=== PATIENT | female | born 1985 | race Caucasian/White ===

== ENCOUNTER → 2017-05-20 17:17 | Outpatient (REF) | payer BC, SELFPAY | LOC: LAB 17:17 | PROVIDERS: Visit Provider Nurse Practitioner Obstetrics & Gynecology | DX: Z34.90 Encounter for supervision of normal pregnancy, unspecified, unspecified trimester (principal) | CPT/HCPCS: 86403 ==

== ENCOUNTER 2017-06-25 08:10 | Inpatient (IN) ==
[2017-06-25 08:56] LABS: Appearance,Urine CLEAR (Clear); Bilirubin,Urine Negative (Negative); Blood, Urine Negative (Negative); Color,Urine YELLOW (Yellow); Glucose,Urine (UA) Negative (Negative); Ketones,Urine Negative (Negative); Leukocyte Esterase,Urine Negative (Negative); Microscopic, Urine URINE MICROSCOPIC (MICROSCOPIC); Protein,Urine TRACE (Negative); Specific Gravity, Urine 1.015 (1.005-1.030); Urobilinogen,Urine 0.2 EU/dl (0.2)
[2017-06-25 09:12] LABS: Basophils % 0.1 % (0.1-2.0); Eosinophils # 0.1 K/mm3 (0.0-0.4); Hematocrit 40.1 % (37.0-47.0); Hemoglobin 13.1 g/dL (12.2-16.2); Lymphocytes # 1.1 K/mm3 (0.7-4.5); Lymphocytes % 15.5 K/mm3 (10-50); Mean Corpuscular HGB Conc 32.7 g/dL (31.8-35.4); Mean Corpuscular Volume 97.8 fl (81-99); Mean Platelet Volume 8.9 fl (7.4-10.4); Monocytes # 0.3 K/mm3 (0.1-1.0); Monocytes % 4.2 % (1.7-9.3); Neutrophils # 5.6 K/mm3 (1.8-7.8); Neutrophils % 79.2 % (37.0-80.0); Platelet Count 221 K/mm3 (142-424); Red Blood Count 4.11 M/mm3 (4.20-5.40); Red Cell Distribution Width 13.6 % (11.5-17.5); White Blood Count 7.1 K/mm3 (4.8-10.8)
[2017-06-25 09:18] LABS: WBC,Urine Occasional #/hpf (0-3)
[2017-06-25 09:19] LABS: Bacteria,Urine 1+ /lpf; Mucus,Urine 1+ /lpf
--- NOTE | 2017-06-25 10:37 | Procedure Note ---
- Delivery Note Delivery Date:: 06/25/17 Delivery Time:: 10:27 Anesthesia Type: None Was labor medically induced?: No Induction method: none Infant delivered prior to 39 weeks?: No Justification for early elective delivery:: Active Labor Gender: Female at 1 minute: 8 at 5 minutes: 9 AF:: Clear fluid Delivery Procedure:: She is a 31-year-old 3 now para 3 who is 40 and 1 weeks gestational age. She came in in active labor and was found to be 6-7 cm dilated. She rapidly progressed to full dilation and delivered spontaneously a liveborn female child at 10:27 AM on the morning of June 25, 2017. On deliver the head there was a loose nuchal cord which was easily reduced. This is followed by the rest of the infant's body atraumatically. The nasopharynx and oropharynx were bulb suctioned. The baby cried spontaneously. We allowed the cord to continue to pulsate for 1 minute. We then doubly clamped the cord and cut the cord. The baby was then placed on the mother's abdomen for further care. The nurses assigned Apgars of 8 at 1 minute and 9 at 5 minutes. We then obtained cord blood as well as cord pH. Patient received IV oxytocin using gentle traction on the cord and countertraction on the fundus I was able to easily deliver the placenta intact. Had a normal three-vessel cord. There were no perineal or vaginal lacerations. She plans to breast-feed. Her estimated blood loss was approximately 400 cc. Placental Delivery Description: Spontaneous
--- NOTE | 2017-06-25 10:39 | History & Physical Report ---
OB - H&P: HPI Antepartum - History of Present Illness Chief complaint: Contractions - History of Present Criteria for establishing EDC:: LMP confirmed by 1st trimester US care: good care Ultrasounds: normal 1st trimester US, normal mid trimester US Obstetrical complications: none Medical complications: none Planning to breastfeed?: Yes [facility] History I have reviewed the patient's past medical history: Yes Medical History: Denies:: Anxiety, Asthma, Diabetes Mellitus Type 2 Laterality Cases: Bilateral: Myringotomy (Ear Tubes), Other Other Surgeries: Yes: Other. No: Amputation: No Fractures: No - *Social History Smoking Status: Never smoker Alcohol Intake: never Substance Use Type: denies use - Psychiatric History Pschychiatric History:: Denies:: Anxiety *Family Hx:: Diabetes, Hypertension Para: 2 Review of Systems - Review of Systems Review of systems:: pertinent systems reviewed and negative unless documented below Meds Home Medications Medication Instructions Recorded Confirmed Type ferrous sulfate 325 mg (65 mg 325 mg PO DAILY tab 03/24/17 06/25/17 History iron) tablet 1 tab PO QDAY 03/24/17 06/25/17 History vitamin,calcium,zssvprcs-weug-zbmlr acid tablet Allergies Allergy/AdvReac Type Severity Reaction Status Date / Time No Known Drug Intolerances Allergy Unknown NA Verified 06/25/17 08:21 OB - H&P: Exam - Physical Exam Vital signs: Temp Pulse Resp BP Pulse Ox 98.4 F 74 18 121/84 99 06/25/17 08:20 06/25/17 08:20 06/25/17 08:20 06/25/17 08:20 06/25/17 08:20 - Constitutional no acute distress OB - Results - Labs Labs: Short CBC 06/25/17 Range/Units 08:50 WBC 7.1 (4.8-10.8) K/mm3 Hgb 13.1 (12.2-16.2) g/dL Hct 40.1 (37.0-47.0) % Plt Count 221 (142-424) K/mm3 Urine 06/25/17 Range/Units 08:20 Urine Color Yellow (Yellow) Urine Appearance Clear (Clear) Urine pH 7.0 (5.0-8.5) Ur Specific [place] 1.015 (1.005-1.030) Urine Protein Trace (Negative) Urine Glucose (UA) Negative (Negative) OB - A/P Antepartum (1) Normal delivery Current visit: Yes Status: Acute - Additional Plan Plan: expectant management Planning to breastfeed?: Yes
[2017-06-26 07:34] LABS: Hematocrit 34.6 % (37.0-47.0); Hemoglobin 11.3 g/dL (12.2-16.2)
--- NOTE | 2017-06-26 09:04 | Progress Note ---
Internal Medicine - PN: Subj *Date: 06/26/17 *Time: 09:03 Interval history: She continues to do very well. She is eating and drinking and ablating. She is feeding. Her lochia is normal. Exam Vital signs and Labs for Last 24 Hours: Temp Pulse Resp BP Pulse Ox 98.4 F 78 20 107/62 97 06/26/17 03:21 06/26/17 03:21 06/26/17 03:21 06/26/17 03:21 06/26/17 03:21 Laboratory Results - last 24 hr 06/25/17 08:20: Urine Color Yellow, Urine Appearance Clear, Urine pH 7.0, Ur Specific [place] 1.015, Urine Protein Trace, Urine Glucose (UA) Negative, Urine Ketones Negative, Urine Blood Negative, Urine Nitrate Negative, Urine Bilirubin Negative, Urine Urobilinogen 0.2, Ur Leukocyte Esterase Negative, Urine RBC None , Urine WBC Occasional, Ur Squamous Epith Cells 5-10, Urine Bacteria 1+, Urine Mucus 1+ 06/25/17 08:50: Blood Type A Positive, Antibody Screen Negative 06/25/17 08:50: WBC 7.1, RBC 4.11 L, Hgb 13.1, Hct 40.1, MCV 97.8, MCH 32.0 H, MCHC 32.7, RDW 13.6, Plt Count 221, MPV 8.9, Neut % (Auto) 79.2, Lymph % (Auto) 15.5, [place] % (Auto) 4.2, Eos % (Auto) 1.0, Baso % (Auto) 0.1, Neut # (Auto) 5.6 , Lymph # (Auto) 1.1, [place] # (Auto) 0.3, Eos # (Auto) 0.1, Baso # (Auto) 0.0 06/25/17 10:46: Cord ABG pH 7.50 H 06/26/17 06:08: Hgb 11.3 L D, Hct 34.6 L I & O for Last 24 hours: Intake & Output 06/23/17 06/24/17 06/25/17 06/26/17 11:59 11:59 11:59 11:59 Weight 151 lb - Constitutional no acute distress Assessment and Plan (1) Normal delivery Current visit: Yes Status: Acute Category: Medical Code(s): O80 - Encounter for full-term uncomplicated delivery; Z37.9 - Outcome of delivery, unspecified - Assessment and plan all Dx Assessment and Plan for all problems:: She continues to do very well. We will plan to send her home tomorrow.
--- NOTE | 2017-06-26 09:07 | Discharge Summary ---
General - General Admission date: 06/25/17 Discharge date: 06/27/17 HPI HPI: She is a 31-year-old 3 now para 3 who was 40 and 1 weeks gestational age. She came in in active labor. He was found to be 6-7 cm dilated. Hospital Course Hospital Course: She subsequently progressed to full dilation and delivered spontaneously a liveborn female child on the morning of June 25, 2017. The baby had Apgars of 8 at 1 minute and 9 at 5 minutes. She weighed 9 lbs. 1 oz. She has done well and has remained afebrile throughout her hospitalization. She is eating and drinking and ambulate in. She is breast- feeding. She was group B streptococcus positive and did receive 1 dose of IV antibiotics prior to her delivery. She will be discharged home to follow-up with me in 2 weeks time. Objective Vital signs: Temp Pulse Resp BP Pulse Ox 98.4 F 78 20 107/62 97 06/26/17 03:21 06/26/17 03:21 06/26/17 03:21 06/26/17 03:21 06/26/17 03:21 no acute distress Results Labs on day of discharge: Labs from last 24 hours 06/26/17 06/25/17 06/25/17 06:08 10:46 08:50 WBC 7.1 RBC 4.11 L Hgb 11.3 L D 13.1 Hct 34.6 L 40.1 MCV 97.8 MCH 32.0 H MCHC 32.7 RDW 13.6 Plt Count 221 MPV 8.9 Neut % (Auto) 79.2 Lymph % (Auto) 15.5 [place] % (Auto) 4.2 Eos % (Auto) 1.0 Baso % (Auto) 0.1 Neut # (Auto) 5.6 Lymph # (Auto) 1.1 [place] # (Auto) 0.3 Eos # (Auto) 0.1 Baso # (Auto) 0.0 Cord ABG pH 7.50 H Urine Color Urine Appearance Urine pH Ur Specific [place] Urine Protein Urine Glucose (UA) Urine Ketones Urine Blood Urine Nitrate Urine Bilirubin Urine Urobilinogen Ur Leukocyte Esterase Urine RBC Urine WBC Ur Squamous Epith Cells Urine Bacteria Urine Mucus Blood Type Antibody Screen 06/25/17 06/25/17 08:50 08:20 WBC RBC Hgb Hct MCV MCH MCHC RDW Plt Count MPV Neut % (Auto) Lymph % (Auto) [place] % (Auto) Eos % (Auto) Baso % (Auto) Neut # (Auto) Lymph # (Auto) [place] # (Auto) Eos # (Auto) Baso # (Auto) Cord ABG pH Urine Color Yellow Urine Appearance Clear Urine pH 7.0 Ur Specific [place] 1.015 Urine Protein Trace Urine Glucose (UA) Negative Urine Ketones Negative Urine Blood Negative Urine Nitrate Negative Urine Bilirubin Negative Urine Urobilinogen 0.2 Ur Leukocyte Esterase Negative Urine RBC None Urine WBC Occasional Ur Squamous Epith Cells 5-10 Urine Bacteria 1+ Urine Mucus 1+ Blood Type A Positive Antibody Screen Negative DS: Diagnosis - Discharge Diagnosis (1) Normal delivery Status: Acute Discharge Plan - Patient Discharge Instructions ACTIVITY: No heavy lifting DIET: continue same diet - Follow up Plan Disposition: Home, Self-Halfway Medications: Home Medications Medication Instructions Recorded Confirmed Type ferrous sulfate 325 mg (65 mg 325 mg PO DAILY tab 03/24/17 06/25/17 History iron) tablet 1 tab PO QDAY 03/24/17 06/25/17 History vitamin,calcium,acnggqjo-luhs-mqigi acid tablet Prescriptions/Medication Reconciliation: Continue vitamin,calcium,kvaephxx-amqx-tmvcy acid tablet 1 tab PO QDAY ferrous sulfate 325 mg (65 mg iron) tablet 325 mg PO DAILY tab
[2017-06-26 22:29] VITALS: BP 130/80
--- NOTE | 2017-06-27 12:25 | Progress Note ---
Internal Medicine - PN: Subj *Date: 06/27/17 *Time: 10:22 Interval history: no complaints; ready for discharge. PP after of 9# infant. Ambulating, voiding and tolerating regular diet without difficulty lochia less than menses declines pain med Rx at discharge Discharge home with f/u office 6 weeks. Exam Vital signs and Labs for Last 24 Hours: Temp Pulse Resp BP Pulse Ox 99.0 F 68 18 130/80 96 06/26/17 19:55 06/26/17 19:55 06/26/17 19:55 06/26/17 19:55 06/26/17 19:55 I & O for Last 24 hours: Intake & Output 06/25/17 06/26/17 06/27/17 06/28/17 11:59 11:59 11:59 11:59 Weight 151 lb - Constitutional no acute distress - *Routine Respiratory Exam Absent: respiratory distress - *Routine Cardiovascular Exam Absent: tachycardia - *Routine Abdominal Exam Present: soft. Absent: tenderness, distended Comments: fundus firm at umbilicus - *Routine Skin Exam Absent: rash - *Routine Neurological Exam Present: alert, oriented X3 - Routine Psychiatric Exam Present: normal affect. Absent: depressed, anxious Assessment and Plan (1) Normal delivery Current visit: Yes Status: Acute Category: Medical Code(s): O80 - Encounter for full-term uncomplicated delivery; Z37.9 - Outcome of delivery, unspecified - Assessment and plan all Dx Assessment and Plan for all problems:: discharge home f/u office 6 weeks or prn
== END 2017-06-27 12:26 | disposition home or self-care (01) ==
LOC: OBOUT 08:10 → OB 08:13
PROVIDERS: ADMIT Nurse Practitioner Obstetrics & Gynecology; ATTEND Nurse Practitioner Obstetrics & Gynecology

== ENCOUNTER → 2018-07-02 07:14 | Outpatient (CLI) | payer BC, SELFPAY ==
[2018-07-02 07:55] LABS: Basophils % 0.6 % (0.1-2.0); Eosinophils # 0.1 K/mm3 (0.0-0.4); Eosinophils % 2.5 % (0.1-12.0); Hematocrit 40.8 % (37.0-47.0); Hemoglobin 13.5 g/dL (12.2-16.2); Lymphocytes % 52.2 % (10-50); Mean Corpuscular HGB Conc 33.2 g/dL (31.8-35.4); Mean Corpuscular Volume 93.5 fl (81-99); Mean Platelet Volume 7.2 fl (7.4-10.4); Monocytes # 0.2 K/mm3 (0.1-1.0); Monocytes % 4.7 % (1.7-9.3); Neutrophils # 1.5 K/mm3 (1.8-7.8); Platelet Count 295 K/mm3 (142-424); Red Blood Count 4.37 M/mm3 (4.20-5.40); Red Cell Distribution Width 12.4 % (11.5-17.5); White Blood Count 3.8 K/mm3 (4.8-10.8)
[2018-07-02 08:02] LABS: MANUAL DIFFERENTIAL MANUAL DIFFERENTIAL (MANUAL DIFF)
[2018-07-02 08:59] LABS: Alanine Aminotransferase 23 U/L (12-78); Albumin Level 4.3 gm/dL (3.4-5.0); Albumin/Globulin Ratio 1.3 (1.1-1.8); Alkaline Phosphatase 54 U/L (46-116); Aspartate Amino Transferase 12 U/L (15-37); Bilirubin,Total 0.4 mg/dL (0.2-1.0); Blood Urea Nitrogen 18 mg/dL (7-18); Calcium 9.2 mg/dL (8.5-10.1); Carbon Dioxide 29 mmol/L (21.0-32.0); Chloride 103 mmol/L (98-107); Chol/HDL Ratio 2.9 (1-3.5); Cholesterol 204 mg/dL (140-200); Creatinine,Serum 0.81 mg/dL (0.55-1.02); Estimated Glomerular Filt Rate 82 ml/min (>60); Free Thyroxine Index 1.8 ug/dL (5.93-13.13); GFR (African American) 99 ML/MIN (>60); Globulin 3.2 gm/dl (1.3-3.2); Glucose 95 mg/dL (74-106); HDL Cholesterol 70 mg/dL (29-89); LDL Cholesterol 120 mg/dL (0-130); Sodium 141 mmol/L (136-145); T4 (Thyroxine) 5.9 ug/dl (4.7-13.3); Thyroid Stimulating Hormone 6.46 uIU/ml (0.358-3.740); Total Protein,Serum 7.5 gm/dL (6.4-8.2); Triglycerides 71 mg/dL (30-200); Triiodothryronine (T3) Uptake 31 % (31-39); VLDL Cholesterol 14 mg/dL (0-40)
[2018-07-02 09:45] LABS: Eosinophils % 4 % (0-3); Lymphocytes % 49 % (10-50); Monocytes % 6 % (2-9); Neutrophils % 41 % (42-76); Platelet Estimate Normal; RBC Morphology Normal; Total Cells Counted 100
== END ==
PROVIDERS: PCP Internal Medicine Adolescent Medicine; Visit Provider Internal Medicine Adolescent Medicine
DX: E78.5 Hyperlipidemia, unspecified (principal); E03.9 Hypothyroidism, unspecified
CPT/HCPCS: 36415; 80053; 80061; 84436; 84443; 84479; 85007; 85025

== ENCOUNTER → 2019-02-17 10:07 | Outpatient (CLI) | payer BC, SELFPAY ==
--- NOTE | 2019-02-17 10:13 | US_ITS ---
PROCEDURE: US OB TRANSVAGINAL CLINICAL INDICATION: US OB Dates COMPARISON: TVP US TRANSVAGINAL PREG from 11/03/2016 FINDINGS: An intrauterine gestational sac is present with a pole with a crown-rump length of 0.34 cm correlating to gestational age of 6 week. heart tones are present with an FHR of 112 bpm. Yolk sac is noted. Unremarkable adnexa IMPRESSION: Live IUP at 6 weeks. Estimated due date by Ultrasound is 10/13/2019 Dictated by: Robinson Joseph MD 02/17/2019 17:57 Electronically signed by Robinson Joseph MD in [facility] 02/17/2019 17:57
== END ==
PROVIDERS: PCP Internal Medicine Adolescent Medicine; Visit Provider Nurse Practitioner Obstetrics & Gynecology
DX: O26.841 Uterine size-date discrepancy, first trimester (principal)
CPT/HCPCS: 76817

== ENCOUNTER → 2019-03-03 08:53 | Outpatient (CLI) | payer BC, SELFPAY ==
[2019-03-03 09:22] LABS: Basophils % 0.4 % (0.1-2.0); Eosinophils % 0.7 % (0.1-12.0); Hemoglobin 13.2 g/dL (12.2-16.2); Lymphocytes # 1.5 K/mm3 (0.7-4.5); Lymphocytes % 28.7 % (10-50); Mean Corpuscular HGB Conc 32.3 g/dL (31.8-35.4); Mean Corpuscular Hemoglobin 31.2 pg (27.0-31.2); Mean Corpuscular Volume 96.5 fl (81-99); Mean Platelet Volume 7.6 fl (7.4-10.4); Monocytes # 0.3 K/mm3 (0.1-1.0); Monocytes % 4.6 % (1.7-9.3); Neutrophils # 3.5 K/mm3 (1.8-7.8); Neutrophils % 65.6 % (37.0-80.0); Platelet Count 316 K/mm3 (142-424); Red Blood Count 4.25 M/mm3 (4.20-5.40); Red Cell Distribution Width 13.2 % (11.5-17.5); White Blood Count 5.3 K/mm3 (4.8-10.8)
[2019-03-04 08:48] LABS: HIV Screen 4th Generation wRfx Non Reactive (Non Reactive)
[2019-03-04 16:30] LABS: Hepatitis B Surface Antigen Negative (Negative); Hepatitis C Antibody <0.1 s/co ratio (0.0-0.9); Rapid Plasma Reagin Ab Titer Non Reactive (NonRea<1:1); Rubella Antibodies, IgG 1.88 index (Immune >0.99)
== END ==
PROVIDERS: Visit Provider Nurse Practitioner Obstetrics & Gynecology
DX: Z34.90 Encounter for supervision of normal pregnancy, unspecified, unspecified trimester (principal)
CPT/HCPCS: 36415; 85025; 86592; 86703; 86762; 86850; 87340; 87380; G0432

== ENCOUNTER → 2019-03-25 12:01 | Outpatient (CLI) | payer BC, SELFPAY ==
--- NOTE | 2019-03-25 12:07 | US_ITS ---
PROCEDURE: US OB TRANSVAGINAL CLINICAL INDICATION: US OB T/V- Bleeding cramping in early COMPARISON: US OB TRANSVAGINAL from 02/17/2019 FINDINGS: An intrauterine gestational sac is present with a pole with a crown-rump length of 4.73cm correlating to gestational age of 11weeks 4days. heart tones are present with an FHR of 174bpm. Yolk sac is noted. There is an area of increased echogenicity along the placenta adjacent to the endometrium suspicious for an area of subchorionic bleeding. There is some increased echogenicity in the cervical canal which may be related to blood as well. Unremarkable adnexa IMPRESSION: Live IUP at 11 weeks 4 days. There is a small area of suspected subchorionic hemorrhage Estimated due date by Ultrasound is 10/10/2019 Dictated by: Robinson Joseph MD 03/25/2019 14:05 Electronically signed by Robinson Joseph MD in [facility] 03/25/2019 14:05
== END ==
PROVIDERS: PCP Internal Medicine Adolescent Medicine; Visit Provider Nurse Practitioner Obstetrics & Gynecology
DX: O46.90 Antepartum hemorrhage, unspecified, unspecified trimester (principal); O99.89 Other specified diseases and conditions complicating pregnancy, childbirth and the puerperium; R25.2 Cramp and spasm
CPT/HCPCS: 76817

== ENCOUNTER → 2019-05-23 12:56 | Outpatient (CLI) | payer BC, SELFPAY ==
--- NOTE | 2019-05-23 12:56 | US_ITS ---
PROCEDURE: US OB /MATERNAL DETAIL CLINICAL INDICATION: 20 wk gestation COMPARISON: No exams were available for comparison FINDINGS: There is a single live fetus which is in variable position which ended up in breech position at the into the exam. Send is posterior. Cervix is closed measuring 3.9 cm. Patient has a history of subchorionic hemorrhage. There is a hypoechoic curvilinear area along the lower uterine region measuring 4 x 1.3 cm and could represent sequela from the sore a chorionic hemorrhage. This however is questionable. The placenta is posterior in implantation and the area of decreased echogenicity is inferior.. Complete survey performed and was unremarkable on the submitted images as in PACS. No discrete anomalies identified on survey imaging by technologist. Active fetus. Three-vessel cord with satisfactory umbilical cord insertion. 4- chamber heart noted. Survey of brain & ventricles Unremarkable. Face and neck survey unremarkable. Diaphragm and chest views unremarkable. Abdomen: Both kidneys noted and unremarkable. Stomach noted and satisfactory. Spine: Survey of the spine satisfactory with no anomalies identified nor imaged. Both arms and legs noted. Amniotic Fluid: Adequate. Maternal adnexa: No significant findings. Measurements: Average ultrasound age 20weeks 1day. Gestational Age 19 weeks 4 days Estimated due date by ultrasound age 0710/09/2019. Estimated weight 331g BPD = 20weeks 1day OFD = 20 weeks 3 days HC = 19weeks 4days AC = 20weeks 2days FL = 20weeks 1day Growth Percentile= 75% Heart Rate = 153bpm Cerebellum = 20weeks 2days Humerus = 20weeks 3days HC/AC is 1.13 CI is 0.77 FL/BPD is 0.7 FL/AC is 0.22 IMPRESSION: There is a live IUP in variable position with an average ultrasound age of 20 weeks and 1 day. No obvious anomalies are evident with all parameters correlating. Please see above for detail. There is some heterogeneous echogenicity along the lower uterine segment which could be residual from the previously noted subchorionic hemorrhage. The placenta is posterior in implantation without obvious previa. Continued follow-up is suggested. Dictated by: Robinson Joseph MD 05/23/2019 14:21 Electronically signed by Robinson Joseph MD in [facility] 05/23/2019 14:21
== END ==
PROVIDERS: PCP Internal Medicine Adolescent Medicine; Visit Provider Nurse Practitioner Obstetrics & Gynecology
DX: Z34.90 Encounter for supervision of normal pregnancy, unspecified, unspecified trimester (principal); Z36.0 Encounter for antenatal screening for chromosomal anomalies
CPT/HCPCS: 76811

== ENCOUNTER → 2019-07-08 06:49 | Outpatient (CLI) | payer BC, SELFPAY ==
[2019-07-08 07:49] LABS: Glucose,Fasting 88 mg/dl (74-100)
[2019-07-08 08:57] LABS: Glucose 1 Hour 116 mg/dL (74-100)
== END ==
PROVIDERS: Visit Provider Nurse Practitioner Obstetrics & Gynecology
DX: Z34.90 Encounter for supervision of normal pregnancy, unspecified, unspecified trimester (principal)
CPT/HCPCS: 36415; 82951

== ENCOUNTER → 2019-09-09 09:25 | Outpatient (CLI) | payer BC, SELFPAY ==
--- NOTE | 2019-09-09 09:25 | US_ITS ---
PROCEDURE: US OB /MATERNAL DETAIL CLINICAL INDICATION: Lower abdominal pain COMPARISON: US OB /MATERNAL DETAIL from 05/23/2019 FINDINGS: Single viable intrauterine gestation. Cephalic position. Placenta: Posteriorplacenta grade 1. Cervix: 3.8 centimeters There is average amount fluid. Complete survey performed and was unremarkable on the submitted images as in PACS. No discrete anomalies identified on survey imaging by technologist. Active fetus. Three-vessel cord with satisfactory umbilical cord insertion. 4- chamber heart noted. Survey of brain & ventricles Unremarkable. Face and neck survey unremarkable. Diaphragm and chest views unremarkable. Abdomen: Both kidneys noted and unremarkable. Stomach noted and satisfactory. Spine: Survey of the spine satisfactory with no anomalies identified nor imaged. Both arms and legs noted. Amniotic Fluid: Adequate. Maternal adnexa: No significant findings. Measurements: Average ultrasound age 36weeks 1day. Gestational Age 36weeks 1day Estimated due date by ultrasound age 0710/06/2019. Estimated weight 2,836g BPD = 36weeks 4days OFD = !Error HC = 35weeks 5days AC = 36weeks 1day FL = 36weeks Growth Percentile= 58Percent% Heart Rate = 142bpm HC/AC is 0.98 CI is 0.81 FL/BPD is 0.78 FL/AC is 0.22 IMPRESSION: Thirty-six week 1 day IUP Dictated by: Thierry Salcedo 09/09/2019 11:03 Electronically signed by Thierry Salcedo in [facility] 09/09/2019 11:03
== END ==
PROVIDERS: PCP Internal Medicine Adolescent Medicine; Visit Provider Nurse Practitioner Obstetrics & Gynecology
DX: Z34.90 Encounter for supervision of normal pregnancy, unspecified, unspecified trimester (principal); R10.30 Lower abdominal pain, unspecified
CPT/HCPCS: 76811; 76819

== ENCOUNTER → 2019-09-12 17:41 | Outpatient (CLI) | payer BC, SELFPAY | PROVIDERS: Visit Provider Nurse Practitioner Obstetrics & Gynecology | DX: Z34.90 Encounter for supervision of normal pregnancy, unspecified, unspecified trimester (principal) | CPT/HCPCS: 86403 ==

== ENCOUNTER 2019-09-29 04:42 | Inpatient (IN) | payer BC, SELFPAY ==
[2019-09-29 04:56] VITALS: BMI 25.0
[2019-09-29 05:30] LABS: Microscopic, Urine URINE MICROSCOPIC (MICROSCOPIC)
[2019-09-29 05:36] LABS: Fetal Membrane Rupture (Rapid) Positive (Negative)
[2019-09-29 05:41] LABS: Appearance,Urine CLOUDY (Clear); Basophils % 0.2 % (0.1-2.0); Bilirubin,Urine Negative (Negative); Blood, Urine 2+ (Negative); Color,Urine YELLOW (Yellow); Eosinophils # 0.2 K/mm3 (0.0-0.4); Eosinophils % 2.3 % (0.1-12.0); Glucose,Urine (UA) Negative (Negative); Hematocrit 35.7 % (37.0-47.0); Hemoglobin 12.3 g/dL (12.2-16.2); Ketones,Urine Negative (Negative); Leukocyte Esterase,Urine Negative (Negative); Lymphocytes # 1.4 K/mm3 (0.7-4.5); Lymphocytes % 22.6 % (10-50); Mean Corpuscular HGB Conc 34.3 g/dL (31.8-35.4); Mean Corpuscular Hemoglobin 34.3 pg (27.0-31.2); Mean Corpuscular Volume 99.8 fl (81-99); Mean Platelet Volume 8.1 fl (7.4-10.4); Monocytes # 0.4 K/mm3 (0.1-1.0); Monocytes % 6.4 % (1.7-9.3); Neutrophils # 4.3 K/mm3 (1.8-7.8); Neutrophils % 68.5 % (37.0-80.0); Nitrate,Urine Negative (Negative); Platelet Count 216 K/mm3 (142-424); Protein,Urine 1+ (Negative); Red Blood Count 3.58 M/mm3 (4.20-5.40); Red Cell Distribution Width 13.4 % (11.5-17.5); Specific Gravity, Urine 1.015 (1.005-1.030); Urobilinogen,Urine 0.2 EU/dl (0.2); White Blood Count 6.3 K/mm3 (4.8-10.8)
[2019-09-29 05:53] LABS: Coronavirus 19 IgG Antibody Negative (Negative); Coronavirus 19 IgM Antibody Negative (Negative)
[2019-09-29 05:54] LABS: Amphetamine/Metha Screen,Urine Negative ng/ml (<1000); Barbiturates Screen,Urine Negative ng/ml (<200)
[2019-09-29 05:55] LABS: Benzodiazepines Screen,Urine Negative ng/ml (<200); Cannabinoid Screen,Urine Negative ng/ml (<50)
[2019-09-29 05:56] LABS: Cocaine Screen,Urine Negative ng/ml (<300)
[2019-09-29 05:57] LABS: Methadone Screen,Urine Negative ng/ml (<300)
[2019-09-29 05:58] LABS: Opiate Screen,Urine Negative ng/ml (<300); Phencyclidine Screen,Urine Negative ng/ml (<25)
[2019-09-29 06:01] LABS: Bacteria,Urine 1+ /lpf
--- NOTE | 2019-09-29 06:13 | HMH.OBAPHP ---
OB - H&P: HPI Antepartum - History of Present Illness Chief complaint: Spontaneous rupture of membranes History of present illness: She is a 34-year-old 4 para 3 at 38 weeks gestational age. She came in with spontaneous ruptures of membranes at 330 this morning. - History of Present Criteria for establishing EDC:: LMP confirmed by 1st trimester US care: good care Ultrasounds: normal 1st trimester US, normal mid trimester US Obstetrical complications: none Medical complications: none - Labs GBS status: positive [facility] History I have reviewed the patient's past medical history: Yes Medical History: Denies:: Anxiety, Asthma, Diabetes Mellitus Type 2 *Have you ever received a pneumonia vaccine?: No *Have you received a flu vaccine this season?: No Laterality Cases: Bilateral: Myringotomy (Ear Tubes), Tonsillectomy, Other Other Surgeries: Yes: Other. No: Amputation: No Fractures: No - *Social History Smoking Status: Never smoker Alcohol Intake: never Substance Use Type: denies use *Occupational Status:: employed *Travel in the last 8 weeks: None - Psychiatric History Pschychiatric History:: Denies:: Anxiety Family Hx:: Diabetes, Hypertension Review of Systems - Review of Systems Review of systems:: pertinent systems reviewed and negative unless documented below Meds Home Medications Medication Instructions Recorded Confirmed Type vitamin with calcium tab PO 03/15/19 09/27/19 History no.72-iron 27 mg-folic acid 1 mg tablet ferrous sulfate 325 mg (65 mg 325 mg PO DAILY #30 tab 05/10/19 09/27/19 Rx iron) tablet fluticasone propionate 50 INTRANASAL 05/10/19 09/27/19 History mcg/actuation nasal spray,suspension Allergies Allergy/AdvReac Type Severity Reaction Status Date / Time No Known Drug Intolerances Allergy Unknown NA Verified 09/27/19 10:12 OB - H&P: Exam - Constitutional no acute distress - Routine HEENT Exam Head: Present: normocephalic Eye: Present: EOMI, PERRL ENT: Present: mucous membranes moist - Routine Neck Exam Present: supple, full ROM - Routine Respiratory Exam Absent: accessory muscle use (good air entry bilaterally), respiratory distress, wheezes, crackles - Routine Cardiovascular Exam Present: RRR. Absent: murmur - Routine Abdominal Exam Present: soft, normoactive bowel sounds. Absent: tenderness, distended, guarding - Routine Rectal Exam Patient deferred: visual exam, digital exam - Routine Exam Patient deferred: external exam, groin exam, perineal exam - Routine Extremities Exam Present: full ROM. Absent: cyanosis, edema - Routine Skin Exam Present: intact. Absent: cyanosis - Routine Neurological Exam Present: alert, oriented X3 - Routine Psychiatric Exam Present: normal affect OB - Results - Labs Labs: Short CBC 09/29/19 Range/Units 05:15 WBC 6.3 (4.8-10.8) K/mm3 Hgb 12.3 (12.2-16.2) g/dL Hct 35.7 L (37.0-47.0) % Plt Count 216 (142-424) K/mm3 Urine 09/29/19 Range/Units 05:15 Urine Color Yellow (Yellow) Urine Appearance Cloudy (Clear) Urine pH 7.0 (5.0-8.5) Ur Specific [place] 1.015 (1.005-1.030) Urine Protein 1+ (Negative) Urine Glucose (UA) Negative (Negative) OB - A/P Antepartum (1) Normal delivery at term Current visit: Yes Status: Acute - Additional Plan Planning to breastfeed?: Yes Plan: expectant management Additional Information:: She has spontaneous rupture of membranes. We will plan to deliver her today.
[2019-09-29 06:16] VITALS: BMI 25.0
[2019-09-29 07:15] VITALS: BP 120/75; PULSE 75; RESP 18; TEMP 36.8; O2SAT 98
--- NOTE | 2019-09-29 10:21 | HMH.LABNOT ---
Labor Note - Subjective: Date: 09/29/19 Time: 10:21 regular contraction - Objective: NST:: Reactive Contractions:: every 2-3 minutes Cervical Dilation:: 2-3 Effacement:: 75% Station: -2 Membranes: spontaneously ruptured - Fetus: Monitoring?: Yes monitoring type:: External - Assessment: Labor progressing?: Yes Cephalopelvic disproportion?: No Patient Problems: All Active Problems Normal delivery at term (Acute) (Acute) Strep pharyngitis (Acute) Follow-up arranged for 2 weeks (Acute) - Plan: Anesthesia for epidural?: No Continue to labor down?: Yes Plan for ?: No Continue to monitor?: Yes Start pushing?: No
[2019-09-29 11:30] VITALS: BP 126/76; PULSE 67; RESP 18; TEMP 36.9
--- NOTE | 2019-09-29 12:17 | HMH.LABNOT ---
Labor Note - Subjective: Date: 09/29/19 Time: 12:17 regular contraction - Objective: NST:: Reactive Contractions:: every 2-3 minutes Cervical Dilation:: 4 Effacement:: 75% Station: -2 Membranes: spontaneously ruptured - Fetus: Monitoring?: Yes monitoring type:: External - Assessment: Labor progressing?: Yes Cephalopelvic disproportion?: No Patient Problems: All Active Problems Normal delivery at term (Acute) (Acute) Strep pharyngitis (Acute) Follow-up arranged for 2 weeks (Acute) - Plan: Anesthesia for epidural?: No Continue to labor down?: Yes Plan for ?: No Continue to monitor?: Yes Start pushing?: No
--- NOTE | 2019-09-29 13:41 | HMH.DN ---
- Delivery Note Delivery Date:: 09/29/19 Delivery Time:: 13:21 Anesthesia Type: None Was labor medically induced?: No Induction method: none Gestational age (weeks): 38 delivered prior to 39 weeks?: Yes Justification for early elective delivery:: Active Labor Infant Gender: Male at 1 minute: 8 at 5 minutes: 9 Delivery Procedure:: She is a 34-year-old 4 para 3 at 38 weeks gestational age. She came in with ruptured membranes. She was started on IV oxytocin and progressed to full dilation. She delivered spontaneously a liveborn male child at 1:21 PM in the afternoon of September 29, 2019. On deliver the shoulder the anterior shoulder then delivered followed by the rest of his body atraumatically. The baby was vigorous and cried spontaneously. The oropharynx and nasopharynx were bulb suction. We allowed the cord to continue to pulsate for 1 minute. The cord was then doubly clamped and cut and the infant was placed on the mother's abdomen for further care. The nurses assigned Apgars of 8 at 1 minute and 9 at 5 minutes. They obtained cord blood as well as cord pH. pH was 7.47. She received IV oxytocin using gentle traction on the cord and countertraction on the fundus I was able to easily deliver the placenta intact. He had a normal three-vessel cord. There were no perineal or vaginal lacerations. Estimated blood loss was approximately 400 cc. She was group B streptococcus positive and did receive IV antibiotics while in labor. She received a total of 2 doses Placental Delivery Description: Spontaneous
[2019-09-29 13:42] LABS: Cord Blood PH 7.47 (7.35-7.45)
[2019-09-29 15:30] VITALS: BP 124/78; PULSE 70; RESP 18; TEMP 36.8
[2019-09-29 19:55] VITALS: BP 116/68; PULSE 60; RESP 18; TEMP 36.7; O2SAT 97
[2019-09-29 23:57] VITALS: BP 117/65; PULSE 74; RESP 18; TEMP 36.6; O2SAT 96
[2019-09-30 03:48] VITALS: BP 107/65; PULSE 65; RESP 16; TEMP 36.8; O2SAT 97
[2019-09-30 07:29] LABS: Hematocrit 34.1 % (37.0-47.0); Hemoglobin 11.4 g/dL (12.2-16.2)
--- NOTE | 2019-09-30 08:32 | HMH.ACPN2 ---
Internal Medicine - PN: Subj *Date: 09/30/19 *Time: 08:32 Interval history: She is 1 day from a vaginal delivery. She is doing very well. She is eating and drinking and ambulating. She is breast-feeding. Her lochia is normal. Exam Vital signs and Labs for Last 24 Hours: Temp Pulse Resp BP Pulse Ox 98.2 F 65 16 107/65 L 97 09/30/19 03:48 09/30/19 03:48 09/30/19 03:48 09/30/19 03:48 09/30/19 03:48 Laboratory Results - last 24 hr 09/29/19 13:20: Cord ABG pH 7.47 H 09/30/19 06:55: Hgb 11.4 L, Hct 34.1 L I & O for Last 24 hours: Intake & Output 09/27/19 09/28/19 09/29/19 09/30/19 11:59 11:59 11:59 11:59 Intake Total Balance Weight 146 lb - Constitutional no acute distress - *Routine HEENT Exam Head: Present: normocephalic Eye: Present: EOMI, PERRL ENT: Present: mucous membranes moist Assessment and Plan (1) Normal delivery at term Current visit: Yes Status: Acute Category: Medical Code(s): O80 - Encounter for full-term uncomplicated delivery - Assessment and plan all Dx Assessment and Plan for all problems:: She continues to do well. We will plan to send her home tomorrow.
[2019-09-30 20:59] VITALS: BP 114/70; PULSE 55; RESP 16; TEMP 36.9; O2SAT 98
[2019-10-01 08:30] VITALS: BP 116/63; PULSE 76; RESP 18; TEMP 36.4; O2SAT 98
--- NOTE | 2019-10-01 10:21 | P.DS_ITS ---
General - General Admission date:: 09/29/19 Discharge date: 10/01/19 HPI HPI: She is a 34-year-old 4 now para 4 who is 38 weeks gestational age. She came in active labor with ruptured membranes. Hospital Course Hospital Course: She was having contractions and progressed to full dilation. She delivered spontaneously a liveborn male child at 1:21 PM in the afternoon of September 29, 2019. The baby weighed 8 pounds 1 ounces and was 19-1/2 inches long. He had Apgars of 8 at 1 minute and 9 at 5 minutes. There were no perineal or vaginal lacerations. She has a positive blood, she is Kay immune and was group B streptococcus positive. She did receive 2 doses of antibiotics while in labor. She is discharged home to follow-up with me in approximately 2 weeks time. She will continue with her vitamins and iron. She was given the usual instructions with respect to limiting her activity, driving and sexual activity. She is breast-feeding. Her business transformation consultant is Dr. Ashley. Her condition on discharge is stable and improved. Rhogam Administration: Not Indicated Objective Vital signs: Temp Pulse Resp BP Pulse Ox 97.5 F L 76 18 116/63 98 10/01/19 08:30 10/01/19 08:30 10/01/19 08:30 10/01/19 08:30 10/01/19 08:30 no acute distress - *Routine HEENT Exam Head: Present: normocephalic Eye: Present: EOMI, PERRL ENT: Present: mucous membranes moist DS: Diagnosis - Discharge Diagnosis (1) Normal delivery at term Status: Acute Discharge Plan - Patient Discharge Instructions ACTIVITY: No heavy lifting DIET: continue same diet Additional Instructions: NOTHING IN VAGINA FOR 6 WEEKS NO HEAVY LIFTING OR STRENUOUS ACTIVITY Patient Instructions: Depression, Hemorrhage, DI for Labor and Delivery, Vaginal , DI for Pre-eclampsia, Preventing the Spread of Coronavirus Discharge Instructions, Post Discharge Instructions - Follow up Plan Follow up with: Davon Oakes MD [Staff Physician] - 2 weeks (Call Thursday morning to schedule appointment.) Disposition: Home, Self-Fdc Medications: Home Medications Medication Instructions Recorded Confirmed Type vitamin with calcium 1 tab PO DAILY 03/15/19 09/29/19 History no.72-iron 27 mg-folic acid 1 mg tablet fluticasone propionate 50 1 spray INTRANASAL DAILY 05/10/19 09/29/19 History mcg/actuation nasal spray,suspension Ferrous Sulfate 325 mg PO DAILY 09/29/19 09/29/19 History Prescriptions/Medication Reconciliation: Continued vitamin with calcium no.72-iron 27 mg-folic acid 1 mg tablet 1 tab PO DAILY fluticasone propionate 50 mcg/actuation nasal spray,suspension 1 spray INTRANASAL DAILY Ferrous Sulfate 325 mg PO DAILY - Problem Reconciliation Problems Reviewed?: Yes
== END 2019-10-01 11:36 | disposition home or self-care (01) | DRG 807 ==
PROVIDERS: Admitting Provider Nurse Practitioner Obstetrics & Gynecology; PCP Internal Medicine Adolescent Medicine; Visit Provider Nurse Practitioner Obstetrics & Gynecology
DX: O80 Encounter for full-term uncomplicated delivery (principal); Z37.0 Single live birth; Z3A.38 38 weeks gestation of pregnancy; Z22.330 Carrier of Group B streptococcus
CPT/HCPCS: 59409; 36415; 59025; 80305; 81001; 82800; 84112; 85014; 85018; 85025; 86328; 86850; J0290; J0595

== ENCOUNTER → 2020-11-16 09:45 | Outpatient (CLI) | payer BC, SELFPAY ==
--- NOTE | 2020-11-16 09:45 | US_ITS ---
PROCEDURE: US TRANSVAGINAL CLINICAL INDICATION: Check position of IUD COMPARISON: US US OB TRANSVAGINAL from 03/25/2019 FINDINGS: The uterus is upper limits normal in size and retroverted. Uterus measures 8.0 x 3.9 x 5.5 cm. The IUD is seen in normal position with in the endometrial cavity. Left ovary is upper limits of normal in size measuring 4.7 x 2.9 cm. Left ovarian volume is 24.5 mL. There is a dominant cyst measuring 4.0 x 2.2 by 3.2 cm. Right ovary measures 3.3 by 4.3 x 2.7 cm and appears normal. There is no cul-de-sac fluid. IMPRESSION: Retroverted uterus with IUD in normal position in the endometrial cavity Dictated by: Dr. Raffi Worthington MD 11/16/2020 11:17 Dr. Raffi Worthington MD in OV 11/16/2020 11:17
== END ==
PROVIDERS: PCP Internal Medicine Adolescent Medicine; Visit Provider Nurse Practitioner Obstetrics & Gynecology
DX: N92.6 Irregular menstruation, unspecified (principal); Z97.5 Presence of (intrauterine) contraceptive device
CPT/HCPCS: 76830

== ENCOUNTER → 2021-03-27 07:08 | Outpatient (CLI) | payer BC, SELFPAY ==
[2021-03-27 07:41] LABS: Basophils # 0.1 K/mm3 (0-0.2); Eosinophils # 0.1 K/mm3 (0.0-0.4); Eosinophils % 2.1 % (0.1-12.0); Hematocrit 43.8 % (37.0-47.0); Hemoglobin 13.4 g/dL (12.2-16.2); Lymphocytes # 1.6 K/mm3 (0.7-4.5); Lymphocytes % 36.9 % (10-50); Mean Corpuscular HGB Conc 30.7 g/dL (31.8-35.4); Mean Corpuscular Hemoglobin 31.1 pg (27.0-31.2); Mean Corpuscular Volume 101.4 fl (81-99); Mean Platelet Volume 7.8 fl (7.4-10.4); Monocytes # 0.2 K/mm3 (0.1-1.0); Monocytes % 4.6 % (1.7-9.3); Neutrophils # 2.5 K/mm3 (1.8-7.8); Neutrophils % 55.4 % (37.0-80.0); Platelet Count 342 K/mm3 (142-424); Red Blood Count 4.32 M/mm3 (4.20-5.40); Red Cell Distribution Width 13.6 % (11.5-17.5); White Blood Count 4.5 K/mm3 (4.8-10.8)
[2021-03-27 08:58] LABS: HCG Qualitative, Serum Negative (Negative)
[2021-03-27 09:02] LABS: Alanine Aminotransferase 10 U/L (12-78); Albumin Level 4.8 g/dl (3.5-5.0); Albumin/Globulin Ratio 2.1 (1.1-1.8); Alkaline Phosphatase 39 U/L (38-126); Anion Gap 14.2 mEq/L (5-15); Aspartate Amino Transferase 23 U/L (14-36); Bilirubin,Total 0.3 mg/dl (0.2-1.3); Blood Urea Nitrogen 13 mg/dl (7-17); Calcium 9.3 mg/dl (8.4-10.2); Carbon Dioxide 30 mmol/L (22.0-30.0); Chloride 99 mmol/L (98-107); Estimated Glomerular Filt Rate 95 ml/min (>60); GFR (African American) 115 ML/MIN (>60); Globulin 2.3 g/dL (1.3-3.2); Glucose 97 mg/dl (74-100); Potassium 4.2 mmoL/L (3.5-5.1); Sodium 139 mmol/L (136-145); Total Protein,Serum 7.1 g/dl (6.3-8.2)
== END ==
PROVIDERS: Visit Provider Nurse Practitioner Obstetrics & Gynecology
DX: Z01.812 Encounter for preprocedural laboratory examination (principal); Z11.52 Encounter for screening for COVID-19; N90.60 Unspecified hypertrophy of vulva
CPT/HCPCS: 36415; 80053; 84703; 85025; C9803; U0003; U0005

== ENCOUNTER 2021-03-29 06:06 | Day surgery (SDC) | payer BC, SELFPAY ==
[2021-03-27 12:29] VITALS: BMI 18.8
[2021-03-29] VITALS (10 sets, daily range): BP systolic 94–128; BP diastolic 60–76; PULSE 46–76; RESP 18; TEMP 36.3–36.7; O2SAT 98–100
--- NOTE | 2021-03-29 08:12 | HMH.OPNOTE ---
Date of procedure: 03/29/21 Pre-op Diagnosis:: Bilateral labial hypertrophy Post-op Diagnosis:: Bilateral labial hypertrophy Procedure performed:: Bilateral labioplasty Surgeon:: Davon Oakes MD CLIENT SERVICES ANALYST:: Other (Hussein Lanier) Anesthesia: spinal Estimated blood loss (mL): 50 Clinical Note:: She is a 35-year-old 4 para 4 lady who complains of pain with intercourse as well as pain with walking. She was noted to have enlarged bilateral labia minora and as result of that was offered labioplasty. The risks and benefits of surgery were discussed the patient. Operative findings:: She had enlarged labia bilaterally that stretched out considerably. Operative note:: She was taken the operating room where spinal anesthesia was found be adequate. She is prepped draped normal sterile fashion in the lithotomy position. The right labia was grasped and stretched out. I then removed a portion of the labia. I then closed the defect using interrupted 3-0 Vicryl Rapide suture. This was similar performed on the patient's left side. I then injected approximately 20 cc of 0.25% ropivacaine subcutaneously along the edge of the incision laterally. She tolerated procedure well and was taken recovery room in excellent condition. All sponge, instrument and needle counts were correct. The estimated blood loss was less than 50 cc. Condition: stable Disposition: PACU Specimens:: None Complications:: None
--- NOTE | 2021-03-29 09:32 | SUR.PHASEII ---
0930- Pt getting some movement back in bilateral lower extremities. Not able to bare weight but able to move both legs slightly.
--- NOTE | 2021-03-29 09:40 | P.PN_ITS ---
[facility] Anesthesia Checklist - Patient Identification Patient Identification: Arm Band, Verbal (Name & ) - Structural Data Admitted From: Home Planned Operative Procedure/s: Labioplasty Consent for Planned Operative Procedure(s) Verified: Yes Verified Documents: Surgical Consent - NPO Status Verified Time NPO: 00:00 - Chart Verification Results Verified: CBC, BMP - Additional verifications Anesthesia Reactions: Yes (family history) Hx Blood Transfusions: No Blood Transfusion Reaction: No - Airway Assessment C-Spine Mobility Assessed: Yes TMJ Mobility Assessed: Yes Dentition: Good Dentition - Neurological Assessment Level of Consciousness: Awake, Alert, Appropriate - Anesthesia Plan Anesthesia Risk discussed: Yes ASA Class: I Anesthesia Type: Spinal [facility] History Medical History: Denies:: Anxiety, Asthma, Cancer, Diabetes Mellitus Type 1, Diabetes Mellitus Type 2, Internal Pacemaker, MRSA, Seizures *Have you ever received a pneumonia vaccine?: No *Have you received a flu vaccine this season?: Yes Other Medical History: Denies: Blood Transfusion Reaction Anesthesia experience/problems:: none Laterality Cases: Bilateral: Myringotomy (Ear Tubes), Tonsillectomy, Other Other Surgeries: Yes: Other. No: , Pacemaker Amputation: No Fractures: No - *Social History Last grade of school completed: Advanced degree Smoking Status: Never smoker Alcohol Intake: never Alcohol Intake Frequency:: other Substance Use Type: denies use *Occupational Status:: employed Housing: house Household Members: spouse, children *Travel in the last 8 weeks: None - Psychiatric History Pschychiatric History:: Denies:: Anxiety Family Hx:: Diabetes, Hypertension
--- NOTE | 2021-03-29 09:50 | SUR.PHASEII ---
0950- more movement noted in bilateral lower extremities, pt sitting up in bed eating oatmeal. tolerating well.
== END 2021-03-29 11:09 | disposition home or self-care (01) ==
LOC: OR 06:07
PROVIDERS: PCP Internal Medicine Adolescent Medicine; Visit Provider Nurse Practitioner Obstetrics & Gynecology
PROC: (CPT 56620; principal; 2021-03-29 07:30)
DX: N90.60 Unspecified hypertrophy of vulva (principal); Z83.3 Family history of diabetes mellitus; Z82.49 Family history of ischemic heart disease and other diseases of the circulatory system
CPT/HCPCS: 56620; 96374; J2405

== ENCOUNTER → 2021-07-02 10:20 | Outpatient (CLI) | payer BC, SELFPAY ==
--- NOTE | 2021-07-02 10:23 | MR_ITS ---
FINAL REPORT CLINICAL HISTORY: DIPLOPIA, NONINTRACTABLE EPISODIC HEADACHE. BLURRED VISION. TINGLING AND NUMBNESS IN EXTREMITIES X1.5YRS. HEADACHE. FINDINGS: Multiplanar MR imaging of the brain was performed without contrast. There is no evidence of intracranial hemorrhage or mass. The ventricular size is normal. There is no evidence of shift of the midline structures. No area of restricted diffusion is identified. The posterior fossa and brainstem have an unremarkable appearance. Normal major vessel vascular flow voids are seen. There is moderate opacification of several right mastoid air cells. IMPRESSION: Moderate right mastoiditis. Otherwise unremarkable brain with no focal abnormality identified. Reviewed, Interpreted and Dictated by Zachary Rueda III, MD Transcribed by Deysi Morales Authenticated by Zachary Rueda III, MD on 07/02/2021 01:28:[address] [facility]
== END ==
PROVIDERS: PCP Internal Medicine Adolescent Medicine; Visit Provider Internal Medicine Adolescent Medicine
DX: R51.9 Headache, unspecified (principal); H53.2 Diplopia
CPT/HCPCS: 70551

== ENCOUNTER 2022-02-26 09:28 | Emergency (ER) | payer BC, SELFPAY ==
[2022-02-26 09:28] VITALS: BP 125/92; PULSE 77; RESP 17; TEMP 36.7; O2SAT 100; BMI 19.2
--- NOTE | 2022-02-26 09:36 | XR_ITS ---
FINAL REPORT CLINICAL HISTORY: soa FINDINGS: A single portable view of the chest was obtained. The heart size and pulmonary vascularity are within normal limits. The mediastinum is within normal limits. No acute pulmonary abnormality is identified. There is hyperinflation consistent with COPD. The bony thorax is intact. IMPRESSION: No acute cardiopulmonary process. Reviewed, Interpreted and Dictated by Zachary Rueda III, MD Transcribed by Deysi Morales Authenticated and [facility]
--- NOTE | 2022-02-26 09:38 | HMH.EDGENADL ---
Discharge Plan Disposition Patient Disposition: Home, Self-Care Condition: Fair Prescriptions Prescriptions: New hydroxyzine HCl 25 mg tablet 25 mg PO HS Qty: 30 0RF No Action Mirena 20 mcg/24 hours (6 yrs) 52 mg intrauterine device 52 mg INTRAUTERI DAILY fluticasone propionate 50 mcg/actuation spray,suspension 1 spray INTRANASAL DAILY calcium carbonate [Calcium 600] 600 mg calcium (1,500 mg) tablet 600 mg PO DAILY estradiol [Estrace] 2 mg tablet 2 mg PO DAILY Qty: 90 2RF docusate sodium 100 MG tablet 100 mg PO DAILY Referrals Follow up/Referrals: Jeromy Ashley MD [Primary Care Provider] - See instructions Clinical Impressions Clinical Impression: Shortness of breath Instructions Patient Instructions: DI for Shortness of Breath Discharge ED Provider: Evangelist Zhu General Adult HPI General Chief complaint: Chest Pain Stated complaint: SOA Time Seen by Provider: 02/26/22 09:30 History of Present Illness HPI narrative: Patient is a 36-year-old female with no pertinent past medical history who presents with concern for shortness of breath. She says that this has been intermittently happening for months but it has gotten progressively more frequent. She says that it seems to happen intermittently with no particular inciting event. She says that she can feel her heart thumping and feel like her throat is closing when it happens. She says that it lasts around 15 minutes and then goes away on its own. She has not taken anything for this. She says this never happened in the past. She says she is unsure if she is just getting anxious during this time or for something is happening. She denies any chest pain when this happens. Denies any numbness or tingling. Denies any radiation of her symptoms. No history of asthma. Related Data Home Medications Medication Instructions Recorded Confirmed fluticasone propionate 50 1 spray intranasal DAILY Allergy 05/10/19 05/06/21 mcg/actuation nasal symptoms spray,suspension levonorgestrel 20 mcg/24 hours (8 52 mg intrauterine DAILY 08/30/20 05/06/21 yrs) 52 mg intrauterine device control (Mirena) calcium carbonate 600 mg calcium 600 mg PO DAILY Supplement 03/20/21 05/06/21 (1,500 mg) tablet (Calcium) docusate sodium 100 mg tablet 100 mg PO DAILY stool softener 03/27/21 05/06/21 Previous Rx's Medication Instructions Recorded estradiol 2 mg tablet (Estrace) 2 mg PO DAILY #90 tabs 04/10/21 hydroxyzine HCl 25 mg tablet 25 mg PO HS #30 tabs 02/26/22 Allergies Allergy/AdvReac Type Severity Reaction Status Date / Time No Known Drug Intolerances Allergy Unknown NA Verified 05/06/21 10:36 [facility] Disclaimer: The information contained in this section may have been updated after the patient was seen, as this information can be updated by other users. Social History Smoking Status: Never smoker alcohol intake: never substance use type: denies use current occupational status: employed Travel in the last 8 weeks: None household members: spouse and children housing: house current occupation: [employer] Agent caffeine: Yes ROS Obtained: Yes All systems reviewed & no additional complaints except as documented A 14 point review of system was obtained and otherwise negative except per HPI Physical Exam General General appearance: alert and in no apparent distress Head Head exam: atraumatic, normocephalic and normal inspection Eye Eye exam: Present normal appearance, PERRL and EOMI ENT ENT exam: Present normal exam, normal oropharynx, mucous membranes moist, TM's normal bilaterally and normal external ear exam Neck Neck exam: Present normal inspection, full ROM and trachea midline; Absent meningismus or lymphadenopathy Chest Chest inspection: Present normal inspection and symmetric chest wall rise; Absent tenderness Respiratory Respiratory exam: Present normal
--- NOTE | 2022-02-26 09:51 | PC.NURSE ---
RADIOLOGY AT BEDSIDE
[2022-02-26 09:59] LABS: Basophils # 0.1 K/mm3 (0-0.2); Basophils % 1.2 % (0.1-2.0); Eosinophils # 0.1 K/mm3 (0.0-0.4); Eosinophils % 1.4 % (0.1-12.0); Hematocrit 48.7 % (37.0-47.0); Hemoglobin 15.8 g/dL (12.2-16.2); Lymphocytes # 1.9 K/mm3 (0.7-4.5); Lymphocytes % 40.6 % (10-50); Mean Corpuscular HGB Conc 32.4 g/dL (31.8-35.4); Mean Corpuscular Hemoglobin 31.1 pg (27.0-31.2); Mean Corpuscular Volume 95.8 fl (81-99); Mean Platelet Volume 8.1 fl (7.4-10.4); Monocytes # 0.2 K/mm3 (0.1-1.0); Monocytes % 4.2 % (1.7-9.3); Neutrophils # 2.5 K/mm3 (1.8-7.8); Neutrophils % 52.6 % (37.0-80.0); Platelet Count 398 K/mm3 (142-424); Red Blood Count 5.08 M/mm3 (4.20-5.40); Red Cell Distribution Width 13.4 % (11.5-17.5); White Blood Count 4.7 K/mm3 (4.8-10.8)
[2022-02-26 10:05] LABS: Chloride 103 mmol/L (98-107); Potassium 3.8 mmoL/L (3.5-5.1); Sodium 142 mmol/L (136-145)
[2022-02-26 10:08] LABS: Alanine Aminotransferase 22 U/L (12-78); Albumin Level 5.4 g/dl (3.5-5.0); Albumin/Globulin Ratio 1.6 (1.1-1.8); Alkaline Phosphatase 60 U/L (38-126); Anion Gap 18.8 mEq/L (5-15); Aspartate Amino Transferase 33 U/L (14-36); Bilirubin,Total 0.7 mg/dl (0.2-1.3); Blood Urea Nitrogen 20 mg/dl (7-17); Calcium 11.1 mg/dl (8.4-10.2); Carbon Dioxide 24 mmol/L (22.0-30.0); Creatinine Clearance Estimated 69 mL/min (50-200); Estimated Glomerular Filt Rate 71 ml/min (>60); GFR (African American) 86 ML/MIN (>60); Globulin 3.3 g/dL (1.3-3.2); Glucose 104 mg/dl (74-100); Total Protein,Serum 8.7 g/dl (6.3-8.2)
[2022-02-26 10:24] LABS: Coronavirus 19, PCR Not Detected (NotDetected); Influenza A, PCR Not Detected (NotDetected); Influenza B, PCR Not Detected (NotDetected)
[2022-02-26 10:30] VITALS: BP 111/77; PULSE 65; RESP 29; O2SAT 98
[2022-02-26 10:34] LABS: Free T4 (Free Thyroxine) 1.15 ng/dl (0.78-2.19)
[2022-02-26 10:39] LABS: Thyroid Stimulating Hormone 6.35 uIU/mL (0.465-4.68)
[2022-02-26 11:05] VITALS: BP 113/75; PULSE 69; RESP 17; TEMP 36.7; O2SAT 100
== END 2022-02-26 11:05 | disposition home or self-care (01) ==
PROVIDERS: Emergency Provider Student in an Organized Health Care Education/Training Program; PCP Internal Medicine Adolescent Medicine
DX: R06.02 Shortness of breath (principal); Z20.822 Contact with and (suspected) exposure to COVID-19; Z79.3 Long term (current) use of hormonal contraceptives
CPT/HCPCS: 71045; 80053; 84439; 84443; 85025; 99283; C9803; U0003; U0005

== ENCOUNTER → 2022-02-27 08:06 | Outpatient (CLI) | payer BC, SELFPAY ==
[2022-02-27 09:26] LABS: Alanine Aminotransferase 14 U/L (12-78); Albumin Level 5.2 g/dl (3.5-5.0); Albumin/Globulin Ratio 1.9 (1.1-1.8); Alkaline Phosphatase 54 U/L (38-126); Anion Gap 14.2 mEq/L (5-15); Aspartate Amino Transferase 25 U/L (14-36); Bilirubin,Total 0.7 mg/dl (0.2-1.3); Blood Urea Nitrogen 21 mg/dl (7-17); Calcium 9.9 mg/dl (8.4-10.2); Carbon Dioxide 27 mmol/L (22.0-30.0); Chloride 103 mmol/L (98-107); Estimated Glomerular Filt Rate 63 ml/min (>60); GFR (African American) 76 ML/MIN (>60); Globulin 2.8 g/dL (1.3-3.2); Glucose 92 mg/dl (74-100); Potassium 4.2 mmoL/L (3.5-5.1); Sodium 140 mmol/L (136-145)
[2022-02-27 09:37] LABS: Intact Parathyroid Hormone 58.3 pg/mL (7.5-53.5)
[2022-02-28 19:22] LABS: Calcium, Ionized 5.3 mg/dL (4.5-5.6)
== END ==
PROVIDERS: PCP Internal Medicine Adolescent Medicine; Visit Provider Internal Medicine Adolescent Medicine
DX: R06.02 Shortness of breath (principal); E83.52 Hypercalcemia
CPT/HCPCS: 36415; 80053; 82330; 83970

== ENCOUNTER → 2022-03-05 14:26 | Outpatient (CLI) | payer BC, SELFPAY ==
--- NOTE | 2022-03-05 14:33 | CA_ITS ---
APPROVED REPORT EXAM: Comprehensive 2D, Doppler, and color-flow Echocardiogram Postdoctoral Fellow: Cassidy Moctezuma RCS, RVS Ht: 5 ft 4 in Wt: 116lbs BSA: 1.55 BP: 111/77 mmHg Indications: murmur, CP Echo Enhancing Agent Indication: Rule out Shunt Agent(s) / Amount(s) Used: Agitated Saline 30 cc Comments: Negative bubble study 2D Dimensions LVOT 1.76 cm (M/F) 1.5-2.5 LA Volume 33.10 mL LA Volume Index 20.80 mL/m2 (M/F) 16-34 M-Mode Dimensions RVDd 2.31 cm (0.9-2.6) LA Diam 3.03 cm (1.9-4.0) LVDd 4.53 cm (3.5-5.7) Ao Diam 2.63 cm (2.0-3.7) LVDs 2.78 cm (3.5-5.7) IVSd 0.78 cm (0.6-1.1) PWd 0.66 cm (0.6-1.1) EF (Teich) 69.10% EPSs 0.27 cm FS 38.60% EDV (Teich) 93.90 mL TAPSE 1.92 (<1.7) ESV (Teich) 29.00 mL LV Diastology E Decel Time 200.00 (160-240 msec) E/A Ratio 3.30 MED E' 16.60 (< 7 cm/sec) MED A' 7.10 cm/s E'/MED E' Ratio 6.19 (>14) LAT E' 19.40 (<10 cm/sec) LAT A' 6.80 cm/s E/LAT E' Ratio 5.29 (>14) Aortic Valve LVOT Max 117.00 (70-110 cm/s) LVOT VTI 21.65 cm AoV Peak Tristan. 156.00 (50-130 cm/s) AO Peak GR. 9.70 mmHg AO Mean GR. 4.80 (<5 mmHg) AO VTI 27.98 (18-25 cm) SAMUEL (VTI) 1.88 (2.5-4.5 cm2) Mitral Valve MV A Velocity 31.00 (40-130 cm/s) E/A Ratio 3.30 MV Decel. Time 200.00 (160-240 ms) Pulmonary Valve PV Peak Velocity 98.00 (50-150 cm/s) Tricuspid Valve TR P. Velocity 199.00 cm/s RAP Estimate 10.00 mmHg RVSP 25.80 mmHg Left Ventricle Left atrium is normal size, left ventricle is normal size, there is overall preserved left ventricular systolic function, estimated ejection fraction 55% with no regional wall motion abnormality, diastolic parameters are within normal range. Right Ventricle Right atrium and right ventricle are normal size and contractility. Atria Intra-atrial septum is intact, there is no flow across the interatrial septum, agitated saline contrast study did not identify intracardiac shunt. Aortic Valve Aortic valve is grossly normal, there is no aortic stenosis or aortic insufficiency. Mitral Valve Mitral valve grossly normal, there is trace mitral regurgitation. Tricuspid Valve Tricuspid grossly normal, there is trace tricuspid regurgitation, tricuspid regurgitation jet velocity is inadequate for calculation of the right ventricular systolic pressure. Pulmonic Valve Pulmonic valve is poorly visualized. Great Vessels Aortic root is normal size. Inferior vena cava is normal size with normal inspiratory collapse. Pericardium No significant pericardial effusion noted. Conclusion 1. Normal left ventricular size preserved left ventricular systolic function, estimated ejection fraction 55% with no regional wall motion abnormality, diastolic parameters are within normal range. 2. Agitated saline contrast study did not identify intracardiac shunt. 3. No significant pericardial effusion noted. 4. Inferior vena cava is normal size with normal inspiratory collapse. Electronically signed by : Jose De Jesus Santoyo MD 03/06/2022 07:03:56
== END ==
PROVIDERS: PCP Internal Medicine Adolescent Medicine; Visit Provider Internal Medicine Adolescent Medicine
DX: R01.1 Cardiac murmur, unspecified (principal); R06.02 Shortness of breath
CPT/HCPCS: 93306

== ENCOUNTER → 2022-04-18 12:57 | Outpatient (CLI) | payer BC, OTHER, SELFPAY ==
--- NOTE | 2022-04-18 14:06 | CT_ITS ---
FINAL REPORT TECHNIQUE: Axial images were obtained from the lung apex to the mid abdomen by computed tomography. Coronal reformatted images were obtained. This study was performed with techniques to keep radiation doses as low as reasonably achievable, (ALARA). Individualized dose reduction techniques using automated exposure control or adjustment of mA and/or kV according to the patient''s size were employed. CLINICAL HISTORY: Shortness of breath COMPARISON: None FINDINGS: There is no axillary adenopathy. There is no hilar or mediastinal adenopathy. Heart size is normal. There is no pericardial or pleural effusion. Limited images of the upper abdomen are unremarkable. There is a calcified granuloma in the right lower lobe. No other mass or suspicious nodule identified. IMPRESSION: No acute abnormality. Reviewed, Interpreted and Dictated by Zachary Rueda III, MD Transcribed by Nina Hodges Authenticated and [facility]
== END ==
PROVIDERS: PCP Internal Medicine Adolescent Medicine; Visit Provider Internal Medicine Adolescent Medicine
DX: R06.00 Dyspnea, unspecified (principal)
CPT/HCPCS: 71250; 94060; 94726; 94729

== ENCOUNTER → 2022-11-03 08:02 | Outpatient (CLI) | payer BC, OTHER, SELFPAY ==
--- NOTE | 2022-11-03 08:30 | MM_ITS ---
PROCEDURE INFORMATION: Exam: MG Bilateral Screening 3D Mammography Exam date and time: 11/03/2022 8:03 AM Age: 37 years old Clinical indication: Screening examination; No personal or family history of breast cancer TECHNIQUE: Imaging protocol: Bilateral Screening tomosynthesis and 2D mammography including computer-aided detection (CAD) when performed. COMPARISON: No relevant prior studies available. FINDINGS: MAMMOGRAPHY: Breast composition: The breasts are extremely dense, which lowers the sensitivity of mammography. Mass: No suspicious masses. Architectural distortion: No suspicious distortion. Calcifications: No suspicious calcifications. Asymmetric density: None. Skin thickening: None. Axillary adenopathy: None. IMPRESSION: No mammographic evidence of malignancy. Annual screening is recommended starting at age 40 unless otherwise clinically indicated. ASSESSMENT: BI-RADS Category 1: Negative
== END ==
PROVIDERS: PCP Internal Medicine Adolescent Medicine; Visit Provider Internal Medicine Adolescent Medicine
DX: Z12.31 Encounter for screening mammogram for malignant neoplasm of breast (principal)
CPT/HCPCS: 77063; 77067

== ENCOUNTER → 2023-02-04 08:27 | Outpatient (CLI) | payer BC, OTHER, SELFPAY ==
[2023-02-04 08:52] LABS: Basophils % 0.6 % (0.1-2.0); Eosinophils # 0.1 K/mm3 (0.0-0.4); Eosinophils % 1.1 % (0.1-12.0); Hematocrit 40.3 % (37.0-47.0); Hemoglobin 13.3 g/dL (12.2-16.2); Lymphocytes # 1.6 K/mm3 (0.7-4.5); Lymphocytes % 29.9 % (10-50); Mean Corpuscular HGB Conc 33.1 g/dL (31.8-35.4); Mean Corpuscular Hemoglobin 32.3 pg (27.0-31.2); Mean Corpuscular Volume 97.7 fl (81-99); Mean Platelet Volume 7.9 fl (7.4-10.4); Monocytes # 0.3 K/mm3 (0.1-1.0); Monocytes % 5.4 % (1.7-9.3); Neutrophils # 3.3 K/mm3 (1.8-7.8); Neutrophils % 62.9 % (37.0-80.0); Platelet Count 281 K/mm3 (142-424); Red Blood Count 4.12 M/mm3 (4.20-5.40); White Blood Count 5.2 K/mm3 (4.8-10.8)
[2023-02-04 09:28] LABS: Anion Gap 12.9 mEq/L (5-15); Blood Urea Nitrogen 16 mg/dl (7-17); Calcium 9.2 mg/dl (8.4-10.2); Carbon Dioxide 26 mmol/L (22.0-30.0); Chloride 102 mmol/L (98-107); Estimated Glomerular Filt Rate 81 ml/min (>60); GFR (African American) 98 ML/MIN (>60); Glucose 71 mg/dl (74-100); Potassium 3.9 mmoL/L (3.5-5.1); Sodium 137 mmol/L (136-145)
== END ==
LOC: LAB 08:27
PROVIDERS: PCP Internal Medicine Adolescent Medicine; Visit Provider Student in an Organized Health Care Education/Training Program
DX: Z01.818 Encounter for other preprocedural examination (principal)
CPT/HCPCS: 36415; 80048; 85025